=== PATIENT | male | born 1945 | race Caucasian/White ===

== ENCOUNTER 2017-06-18 07:23 | Observation (INO) | payer OTHER, MEDICARE ==
[2017-06-18] MEDS ORDERED: diphenhydrAMINE 25 MG CAP PO ONE ×2 (07:29→07:58)
[2017-06-18] MEDS ORDERED: NS 1,000 ML IV ONE (07:29)
[2017-06-18] MEDS ORDERED: DIAZEPAM 5 MG TAB PO ONE (07:29)
[2017-06-18] MEDS ORDERED: ASPIRIN EC 325 MG TAB PO ONE ×2 (07:29→07:58)
[2017-06-18] MEDS ORDERED: FAMOTIDINE 20 MG TAB PO ONE (07:29)
--- NOTE | 2017-06-18 07:49 | CPEKG ---
Heart Rate: 79 RR Interval: 759 P-R Interval: 198 QRSD Interval: 90 QT Interval: 368 QTC Interval: 422 P [place]: 47 QRS [place]: 17 T Wave [place]: 26 EKG Severity - ABNORMAL ECG - EKG Impression: ATRIAL-PACED COMPLEXES EKG Impression: PROBABLE LEFT ATRIAL ABNORMALITY EKG Impression: BORDERLINE T ABNORMALITIES, LATERAL LEADS Electronically Signed By: Naveed Reinoso 18-Jun-2017 08:51:15
[2017-06-18] MEDS ORDERED: FAMOTIDINE 20 MG TAB ONE (07:58)
[2017-06-18] MEDS ORDERED: DIAZEPAM 5 MG TAB ONE (07:59)
[2017-06-18 08:03] LABS: PLATELET COUNT 188 10^3/uL (150-400)
[2017-06-18 08:12] LABS: PROTIME(PATIENT) 13.4 SEC (12.0-15.0)
[2017-06-18] MEDS ORDERED: LIDOCAINE 1% 300 MG/30 ML SDV ONE (08:39)
[2017-06-18] MEDS ORDERED: fentaNYL 100 MCG/2 ML INJ ONE ×2 (08:39→10:15)
[2017-06-18] MEDS ORDERED: MIDAZOLAM 2 MG/2 ML VIAL ONE ×2 (08:39→10:15)
[2017-06-18] MEDS ORDERED: IOPAMIDOL (ISOVUE-370) 150 ML BTL IV ONE (08:40)
--- NOTE | 2017-06-18 09:28 | PDPROPOC ---
Sedation Plan of Care Sedation Plan of Care: vital signs stable, mental status noted, patient educated of risks, benefits, alternatives, patient can tolerate sedation ASA Classification: ASA 2 Planned drugs: fentanyl, midazolam Mallampati Score: Class 1 Mallampati Reference Image: Patient passed 3-3-2 rule?: Yes
--- NOTE | 2017-06-18 09:28 | PDHPUP ---
History & Physical Update H&P update statement: This history and physical update is based on an assessment of the patient which was completed after admission or registration (within 24 hours), but prior to the surgery/procedure.72 year old with hx of CAD, progessive chavez and heart burn with exertion and new anterior and anterior lateral ischemia on Nuclear stress test on June 09, 2017 H&P update: H&P reviewed & patient examined, no change in patient's condition since H&P completed
[2017-06-18] MEDS ORDERED: BIVALIRUDIN 250 MG/5 ML VIAL IV ONE (09:59)
[2017-06-18] MEDS ORDERED: CLOPIDOGREL BISULFATE 75 MG TAB ONE (10:01)
[2017-06-18] MEDS ORDERED: NITROGLYCERIN 1,500 MCG/15 ML VIAL MISC ONE (10:26)
[2017-06-18] MEDS ORDERED: HYDROCODONE/APAP 5/325 TAB PO PRN (10:45)
[2017-06-18] MEDS ORDERED: TEMAZEPAM 15 MG CAP PO PRN (10:45)
[2017-06-18] MEDS ORDERED: NITROGLYCERIN 0.4 MG BTL SL PRN (10:45)
[2017-06-18] MEDS ORDERED: ATROPINE SULFATE 1 MG/10 ML SYR IVP PRN (10:45)
[2017-06-18] MEDS ORDERED: LORazepam 2 MG/ML INJ IVP PRN (10:45)
[2017-06-18] MEDS ORDERED: OXYCODONE/APAP 5/325 TAB PO PRN (10:45)
[2017-06-18] MEDS ORDERED: ONDANSETRON 4 MG/2 ML VIAL IVP PRN (10:45)
[2017-06-18] MEDS ORDERED: clonazePAM 1 MG TAB PO PRN (10:48)
--- NOTE | 2017-06-18 11:00 | CPIP ---
[f rep st] INVASIVE CARDIAC PROCEDURE DATE OF PROCEDURE: 06/18/2017 INDICATION OF PROCEDURE: Positive stress test. Unstable angina. PROCEDURE PERFORMED: 1. Nonselective right groin sheathogram. 2. Left coronary artery selective angiography. 3. Percutaneous coronary intervention of diagonal artery utilizing Synergy 2.5 x 60 mm stent. HISTORY: Briefly, this is a 72-year-old male with history of known coronary artery disease. Patient had outpatient stress testing secondary to anginal symptoms, which showed anterolateral ischemia. T he patient underwent diagnostic cardiac catheterization by Dr. Kenan Morris. Please refer to Dr. Morris's note for full delineation of underlying coronary anatomy. Briefly, the patient was found to have hi gh-grade 90% diagonal artery disease. The LAD appeared to be widely patent. 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 Given this lesion, the patient was consented for PCI. Informed consent was obtained. Utilizing the same sheath in the right groin, which was verified angiographically, a EBU 3.5 guide catheter was advanced to the left coronary arter y. Patient was administered 600 mg Plavix p.o., start Angiomax bolus and drip. A Choice PT wire was placed into the diagonal artery distally. Predilatation of the lesion commenced with a 2.5 x 12 bal loon at 10 atmospheres. After this was performed, we then proceeded with placement of a 2.5 x 16 Syne rgy stent deployed at 15 atmospheres. Post deployment, the patient was administered 200 mcg of nitro glycerin IC. Images were taken in orthogonal views which showed excellent patency of the stented are a with no evidence of dissection or perforation. The wire was removed. The guide catheter was remov ed over an 0.035 wire. Right groin was closed with 6-Greek Angio-Seal. The patient tolerated the pr ocedure well with no complications. IMPRESSION: Successful percutaneous coronary intervention of high-grade diagonal artery disease with Synergy 2.5 x 16 mm drug-eluting stent. PLAN: The patient will have 3 hours' bed rest and if clinically stable will be discharged within 24 hours. /[id number]/MODL
--- NOTE | 2017-06-18 11:09 | CPEKG ---
Heart Rate: 76 RR Interval: 789 P-R Interval: 176 QRSD Interval: 98 QT Interval: 408 QTC Interval: 459 P [place]: -40 QRS [place]: 3 T Wave [place]: -1 EKG Severity - ABNORMAL ECG - EKG Impression: ATRIAL-PACED COMPLEXES EKG Impression: PROBABLE LEFT ATRIAL ABNORMALITY EKG Impression: BORDERLINE T ABNORMALITIES, DIFFUSE LEADS Electronically Signed By: Naveed Reinoso 19-Jun-2017 15:49:51
[2017-06-18] MEDS ORDERED: valACYclovir 500 MG TAB PO PRN (12:00)
[2017-06-18] MEDS: METOPROLOL TARTRATE 25 MG TAB PO SCH (20:21)
[2017-06-18] MEDS ORDERED: ATORVASTATIN CALCIUM 40 MG TAB PO SCH (21:00)
[2017-06-18] MEDS ORDERED: ASPIRIN 81 MG CHEWABLE TAB PO SCH (21:00)
[2017-06-19 04:32] LABS: PLATELET COUNT 151 10^3/uL (150-400)
[2017-06-19 08:05] VITALS: BP 148/80
[2017-06-19] MEDS: METOPROLOL TARTRATE 25 MG TAB PO SCH (08:25)
[2017-06-19] MEDS ORDERED: Herbals/Supplements -Info Only PO SCH (09:00)
[2017-06-19] MEDS ORDERED: CHOLECALCIFEROL VIT D3 1,000 UNITS TAB PO SCH (09:00)
[2017-06-19] MEDS ORDERED: ALLOPURINOL 100 MG TAB PO SCH (09:00)
[2017-06-19] MEDS ORDERED: ASPIRIN 81 MG CHEWABLE TAB PO SCH (09:00)
[2017-06-19] MEDS ORDERED: OMEGA-3 FATTY ACIDS 1,000 MG CAP PO SCH (09:00)
[2017-06-19] MEDS ORDERED: CLOPIDOGREL BISULFATE 75 MG TAB PO SCH (09:00)
--- NOTE | 2017-06-19 09:19 | CPEKG ---
Heart Rate: 78 RR Interval: 769 P-R Interval: 152 QRSD Interval: 94 QT Interval: 364 QTC Interval: 415 P [place]: -35 QRS [place]: -24 T Wave [place]: 77 EKG Severity - ABNORMAL ECG - EKG Impression: NORMAL SINUS RHYTHM EKG Impression: PROBABLE LEFT ATRIAL ABNORMALITY EKG Impression: BORDERLINE LEFT AXIS DEVIATION Electronically Signed By: Naveed Reinoso 19-Jun-2017 15:49:24
--- NOTE | 2017-06-19 10:32 | GDS ---
[f rep st] DISCHARGE SUMMARY DISCHARGE DIAGNOSES: 1. Unstable angina with known coronary artery disease. 2. Known coronary artery disease with chronic total occlusion of the right coronary artery based on left heart catheterization in 2007. 3. History of complete heart block status post permanent pacer. 4. History of atrial fibrillation status post ablation in 2009. 5. Dyslipidemia. 6. Hypertension. 7. New reversible anterolateral defect noted on recent nuclear stress test. 8. A 90% diagonal disease on left heart catheterization in this admission, status post percutaneous transluminal coronary angioplasty and stenting with a 2.5 x 16 Synergy drug-eluting stent. PROCEDURES: 1. Diagnostic left heart catheterization and percutaneous intervention to high-grade left anterior d escending diagonal. PHYSICIANS: Fritz Morris MD and Joni Lima MD BRIEF HISTORY: Please see dictated note from our office, which acts as H and P. In brief, the patie nt is a 72-year-old male who typically follows with Dr. Ludwin Sheehan in our office. He has a history of complete heart block status post pacemaker, atrial fibrillation status post ablation, hypertension , dyslipidemia, CAD with known RCA occlusion, who had been noting progressive chest pain and dyspnea. He proceeded to MPI, which showed an anterolateral reversible defect as well as a fixed inferior de fect. Options were reviewed and patient was brought to the cardiac catheterization laboratory for fu rther evaluation. He was found to have a very severe lesion in his diagonal which was treated with P CI. On day of discharge, he notes no chest pain or groin pain. No arrhythmias were detected on tele metry. HOSPITAL COURSE BY PROBLEM: 1. New onset unstable angina status post PCI to LAD diagonal. He will be placed on dual antiplatele t therapy for 1 year. Prescription given for Plavix in this admission. 2. Hypertension. Blood pressure appears mostly controlled in this admission. He may continue his m etoprolol for blood pressure management. 3. Dyslipidemia. Lipids were done in this admission. His total cholesterol 133, triglycerides 83, HDL 43, LDL of 74. He is to continue his atorvastatin. RESULTS PENDING: None. PHYSICAL EXAM: VITAL SIGNS: On day of discharge, blood pressure 148/80, heart rate 77, respirations 20, O2 saturation 92% on room air, temp of 97.9 degrees Fahrenheit. GENERAL: He is a pleasant male in no apparent distress. HEENT: Normocephalic, atraumatic. HEART: Regular rate and rhythm. EXTRE MITIES: Right groin site without bruit or ecchymosis. He has 2+ PT and DP pulses bilaterally. LABORATORY DATA: BMP with sodium 144, potassium 4.5, chloride 108, CO2 27, BUN 20, creatinine 0.9, g lucose 83. CBC with WBC 6.38, hemoglobin 15.2, hematocrit 45.6, platelet count 151. DIET: Cardiac. ACTIVITY: Groin precautions were reviewed. DISCHARGE MEDICATIONS: Please see med reconciliation. He is being continued on all his home medicat ions including atorvastatin 40 mg p.o. daily, aspirin 81 mg p.o. daily, allopurinol, Klonopin, fish o il, Lopressor 25 p.o. twice daily, Valtrex twice daily p.r.n., vitamin D3. His new prescription is P lavix 75 mg p.o. daily. DISCHARGE INSTRUCTIONS: Follow up with Dr. Sheehan as scheduled this month. /[id number]/MODL
== END 2017-06-19 11:40 | disposition home or self-care (01) ==
LOC: FCATH 07:23 → F2W 10:43
PROVIDERS: ADMIT Internal Medicine Cardiovascular Disease; ATTEND Internal Medicine Cardiovascular Disease
PROC: 027034Z Dilation of Coronary Artery, One Artery with Drug-eluting Intraluminal Device, Percutaneous Approach (ICD-10-PCS; principal; 2017-06-18)
PROC: B2111ZZ Fluoroscopy of Multiple Coronary Arteries using Low Osmolar Contrast (ICD-10-PCS; principal; 2017-06-18)
PROC: B2151ZZ Fluoroscopy of Left Heart using Low Osmolar Contrast (ICD-10-PCS; principal; 2017-06-18)
PROC: 4A023N7 Measurement of Cardiac Sampling and Pressure, Left Heart, Percutaneous Approach (ICD-10-PCS; principal; 2017-06-18)
DX: I25.119 Atherosclerotic heart disease of native coronary artery with unspecified angina pectoris (principal); I10 Essential (primary) hypertension; I48.91 Unspecified atrial fibrillation; E78.5 Hyperlipidemia, unspecified; Z95.0 Presence of cardiac pacemaker
CPT/HCPCS: 93005; 93458; C1725; C1760; C1769; C1874; C1887; C9600; J0583; J1644; J2250; J3010; Q9967

== ENCOUNTER → 2017-07-17 | Outpatient (CLI) | payer OTHER, MEDICARE | LOC: BHLMT 15:30 | PROVIDERS: ATTEND Internal Medicine Cardiovascular Disease | DX: I25.10 Atherosclerotic heart disease of native coronary artery without angina pectoris (principal) | CPT/HCPCS: 93308-PO ==